=== PATIENT | male | born 1970 | race Hispanic/Latino ===

== ENCOUNTER 2016-08-01 16:41 | Inpatient (IN) | payer OTHER ==
--- NOTE | 2016-08-01 17:20 | CT ---
PROCEDURE: CT HEAD WITHOUT CONTRAST. HISTORY: code stroke COMPARISON: None available. TECHNIQUE: Axial computed tomography images were obtained through the head/brain without intravenous contrast. Radiation dose: Total exam DLP = 1679.33 mGy-cm. This CT exam was performed using one or more of the following dose reduction techniques: Automated exposure control, adjustment of the mA and/or kV according to patient size, and/or use of iterative reconstruction technique. FINDINGS: Several images degraded by patient motion. HEMORRHAGE: No intracranial hemorrhage. BRAIN: No mass effect or edema. No atrophy or chronic microvascular ischemic changes.Please note that MRI with diffusion imaging is more sensitive in the detection of acute ischemic event. VENTRICLES: No hydrocephalus. CALVARIUM: Unremarkable. PARANASAL SINUSES: Unremarkable as visualized. No significant inflammatory changes. MASTOID AIR CELLS: Unremarkable as visualized. No inflammatory changes. OTHER FINDINGS: None. IMPRESSION: No acute intracranial pathology identified. Findings discussed with Dr. Hathaway on 08/01/16 at 5:18 p.m.
[2016-08-01 17:21] LABS: BASO # 0.1 K/uL (0.0-0.2); EOS # 0.1 K/uL (0.0-0.7); EOS % 0.6 % (0.0-4.0); LYMPH # 0.5 K/uL (1.0-4.3); LYMPH % 5.8 % (20.0-40.0); MEAN CELL VOLUME 83.6 fl (80.0-94.0); MEAN CORPUSCULAR HEMOGLOBIN 28.9 pg (27.0-31.0); MEAN CORPUSCULAR HGB CONC 34.5 g/dL (33.0-37.0); MEAN PLATELET VOLUME 8.8 fl (7.2-11.7); MONO % 11.5 % (0.0-10.0); NEUT # 7.2 K/uL (1.8-7.0); NEUT % 81.1 % (50.0-75.0); NRBC % 0.2 % (0.0-0.0); PLATELET COUNT 209 K/uL (130-400); RED CELL DISTRIBUTION WIDTH 13.6 % (11.5-14.5); WHITE BLOOD COUNT 8.9 K/uL (4.8-10.8)
[2016-08-01 17:29] LABS: ALB/GLOB RATIO 1.2 (1.0-2.1); ALKALINE PHOSPHATASE 111 U/L (38-126); ALT/SGPT 50 U/L (21-72); AST/SGOT 30 U/L (17-59); BILIRUBIN,TOTAL 0.6 mg/dl (0.2-1.3); BLOOD UREA NITROGEN 11 mg/dl (9-20); CALCIUM 8.9 mg/dL (8.4-10.2); CARBON DIOXIDE 22 mmol/L (22-30); CHLORIDE 100 mmol/L (98-107); CHOLESTEROL 197 mg/dL (0-199); GFR AFRICAN-AMERICAN > 60; GLUCOSE,RANDOM 191 mg/dL (75-110); POTASSIUM 3.8 MMOL/L (3.6-5.0); SODIUM 136 mmol/l (132-148); TOTAL PROTEIN 7.2 G/DL (6.3-8.2)
[2016-08-01] MEDS ORDERED: Sodium Chloride 0.9% 1,000 ML IV ONE (17:30)
[2016-08-01 18:49] LABS: NEUTROPHIL 90 % (42-75); TOTAL CELLS COUNTED 100
[2016-08-01 18:50] LABS: LARGE PLATELETS PRESENT
--- NOTE | 2016-08-01 19:42 | ED PDOC ---
HPI: Neurologic - General Time Seen by Provider: 08/01/16 16:56 Chief Complaint (Nursing): Headache Source: patient Exam Limitations: no limitations - History of Present Illness Timing/Duration: other (started last night slurred speech at 10 am) Associated Symptoms: confusion, fatigue, slurred speech. denies: fever/chills, loss of consciousness, muscle spasms, nausea/vomiting, numbness in legs/feet, paresthesia, ringing in ears, seizures, sleepy, tingling in legs/feet, trouble walking, vision changes, weakness Allergies/Adverse Reactions: Allergies No Known Allergies Allergy (Verified 08/01/16 16:42) Home Medications: Ambulatory Orders No Known Home Med 08/01/16 Additional Complaint(s): Patient headache started 12 am last night. Woke up at 4 am, with tremors and mumble speech. NIHSS Stroke Scale - Date/Time Evaluation Performed Date Performed: 08/01/16 When Was NIHSS Performed: Baseline - How Severe is the Stroke Level of Consciousness: 0=Alert LOC to Questions: 0=Both comments correct LOC to commands: 0=Obeys both correctly Best Gaze: 0=Normal Visual: 0=No visual loss Facial: 0=Normal Motor Arm - Left: 0=No drift Motor Arm - Right: 0=No drift Motor Leg - Left: 0=No drift Motor Leg - Right: 0=No drift Limb Ataxia: 0=Absent Sensory: 0=Normal Best Language: 0=No aphasia Dysarthia: 0=Normal articulation Extinction & Inattention (Neglect): 0=Normal, no object Score: 0 Severity Of Stroke: 0 = No Stroke Past Medical History Reviewed: Historical Data, Nursing Documentation, Vital Signs Vital Signs: Last Vital Signs Temp 97.4 F L 08/01/16 17:15 Pulse 103 H 08/01/16 18:00 Resp 16 08/01/16 18:00 BP 113/68 08/01/16 18:00 Pulse Ox 96 08/01/16 18:00 - Medical History PMH: No Chronic Diseases - Family History Family History: States: Unknown Family Hx - Living Arrangements Living Arrangements: With Family - Social History Current smoker - smoking cessation education provided: No - Home Medications Home Medications: Ambulatory Orders Medication Instructions Recorded No Known Home Med 08/01/16 - Allergies Allergies/Adverse Reactions: Allergies Allergy/AdvReac Type Severity Reaction Status Date / Time No Known Allergies Allergy Verified 08/01/16 16:42 Review of Systems ROS Statement: Except As Marked, All Systems Reviewed And Found Negative Constitutional: Negative for: Fever, Chills Cardiovascular: Negative for: Chest Pain, Palpitations Respiratory: Negative for: Cough, Shortness of Breath Gastrointestinal: Negative for: Nausea, Vomiting, Abdominal Pain Neurological: Positive for: Change in Speech, Altered Mental Status, Headache. Negative for: Weakness, Numbness, Incoordination, Confusion, Seizures, Dizziness Physical Exam - Reviewed Nursing Documentation Reviewed: Yes Vital Signs Reviewed: Yes - Physical Exam Appears: Positive for: Uncomfortable Head Exam: Positive for: ATRAUMATIC, NORMAL INSPECTION, NORMOCEPHALIC Eye Exam: Positive for: Normal appearance, EOMI, PERRL. Negative for: Nystagmus , Periorbital swelling, Periorbital tenderness, Conjunctival injection, Scleral icterus ENT: Positive for: Pharynx Is (clear,mmm), TM Is/Are (nml bl). Negative for: Pharyngeal Erythema, Tonsillar Exudate Neck: Positive for: Normal, Painless ROM, Supple. Negative for: Decreased ROM, Limited ROM, Trachea Midline, Pain On Movement Of Neck Cardiovascular/Chest: Positive for: Regular Rate, Rhythm, Chest Non Tender. Negative for: Edema, Gallop Respiratory: Positive for: Normal Breath Sounds. Negative for: Decreased Breath Sounds, Accessory Muscle Use, Crackles, Rales, Rhonchi, Stridor, Wheezing Gastrointestinal/Abdominal: Positive for: Normal Exam, Bowel Sounds, Soft. Negative for: Tenderness Back: Positive for: Normal Inspection. Negative for: L CVA Tenderness, R CVA Tenderness Extremity: Positive for: Normal ROM. Negative for: Tenderness, Calf Tenderness , Deformity Neurologic/Psych: Positive for: Alert, managed care nurse II-XII, Oriented, Mood/Affect (nxious ), Cerebellar Tests. Negative for: Motor/Sensory Deficits, Aphasia, Facial Droop - Laboratory Results Result Diagrams: 08/01/16 17:00 08/01/16 17:00 - ECG ECG: Positive for: Interpreted By Tx ECG Rhythm: Positive for: Normal QRS, Normal ST Segment, Sinus Tachycardia. Negative for: ST/T Changes Interpretation Of Abn EKG: rate of 110 no evidence of ischemia O2 Sat by Pulse Oximetry: 96 Pulse Ox Interpretation: Normal - Radiology X-Ray: Interpreted by Me X-Ray Interpretation: No Acute Disease - Progress ED Course And Treament: repeat temp 99.7 Re-evaluation Time: 19:45 Condition: Improved Disposition - Clinical Impression Clinical Impression: TIA (transient ischemic attack) - Patient ED Disposition Is Patient to be Admitted: Yes Counseled Patient/Family Regarding: Studies Performed, Diagnosis, Need For Followup - Disposition Disposition: Routine/Home Disposition Time: 19:45 Condition: GOOD - Pt Status Changed To: Hospital Disposition Of: Observation - POA Present On Arrival: None
--- NOTE | 2016-08-01 19:52 | CP.PCM.HP ---
History of Present Illness - History of Present Illness History of Present Illness: PCP: None Chief Complaint: AMS HPI: The hx is obtained from the patient and his . He is a 46 years old male with no significant past medical hx comes referring awaking on the night prior to this admission with tremors, mumbled slurred speech, no LOC. His mentioned that he was mildly confused. No Incontinence of urine nor faeces, no foaming at the mouth. He did have headache before going to sleep. No hx of HTN, DM, Renal disease nor neurological disorder, no Seizure. In the ED the Stroke scale was Zero. PMH: No Chronic diseases PSH: No Past surgical history SH: Never smoked, no Alcohol use; no illegal drug use; live with , works in construction FH: Grandmother with DM Allergies: NKDA Present on Admission - Present on Admission Any Indicators Present on Admission: No History of Uncontrolled Diabetes: No Urinary Catheter: No Decubitus Ulcer Present: No Review of Systems - Review of Systems Systems not reviewed;Unavailable: Respiratory Distress - Constitutional Constitutional: Fever, Headache. absent: Anorexia, Chills - EENT Eyes: absent: Blurred Vision, Diplopia, Floaters, Photophobia, Requires Corrective Lenses, Sees Flashes Ears: absent: Decreased Hearing, Ear Discharge, Ear Pain, Tinnitus Nose/Mouth/Throat: absent: Epistaxis, Nasal Congestion, Nasal Discharge, Dental Pain, Dry Mouth, Sore Throat Additional comments: Mumbled slurred speech. - Cardiovascular Cardiovascular: absent: Chest Pain, Dyspnea, Edema - Respiratory Respiratory: Cough. absent: Dyspnea, Wheezing, Stridor - Gastrointestinal Gastrointestinal: absent: Abdominal Pain, Constipation, Diarrhea, Nausea, Vomiting - Genitourinary Genitourinary: absent: Dysuria, Flank Pain, Hematuria, Urinary Frequency - Musculoskeletal Musculoskeletal: absent: Back Pain, Joint Swelling, Muscle Weakness, Myalgias, Numbness - Integumentary Integumentary: absent: Pruritus, Rash, Skin Ulcer, Sores, Striae, Swelling - Neurological Neurological: Abnormal Speech, Confusion, Tremor - Psychiatric Psychiatric: absent: Anxiety, Depression, Memory Loss, Panic Attacks Additional comments: Mild confusion - Endocrine Endocrine: absent: Palpitations, Polydipsia, Polyphagia, Polyuria - Hematologic/Lymphatic Hematologic: absent: Easy Bleeding, Easy Bruising Past Patient History - Past Medical History & Family History Past Medical History?: No - Past Social History Smoking Status: Never Smoked Chewing Tobacco Use: No Cigar Use: No Alcohol: None Drugs: Denies Home Situation {Lives}: With Family - CARDIAC Hx Cardiac Disorders: No - PULMONARY Hx Respiratory Disorders: No - NEUROLOGICAL Hx Neurological Disorder: No - HEENT Hx HEENT Problems: No - RENAL Hx Chronic Kidney Disease: No - ENDOCRINE/METABOLIC Hx Endocrine Disorders: No - HEMATOLOGICAL/ONCOLOGICAL Hx Blood Disorders: No - INTEGUMENTARY Hx Dermatological Problems: No - MUSCULOSKELETAL/RHEUMATOLOGICAL Hx Musculoskeletal Disorders: No - GASTROINTESTINAL Hx Gastrointestinal Disorders: No - GENITOURINARY/GYNECOLOGICAL Hx Genitourinary Disorders: No - PSYCHIATRIC Hx Psychophysiologic Disorder: No Hx Substance Use: No - SURGICAL HISTORY Hx Surgeries: No - ANESTHESIA Hx Anesthesia: No Meds Allergies/Adverse Reactions: Allergies Allergy/AdvReac Type Severity Reaction Status Date / Time No Known Allergies Allergy Verified 08/01/16 16:42 Physical Exam - Constitutional Appears: No Acute Distress - Head Exam Head Exam: ATRAUMATIC, NORMAL INSPECTION, NORMOCEPHALIC - Eye Exam Eye Exam: EOMI, Normal appearance Pupil Exam: NORMAL ACCOMODATION, PERRL - ENT Exam ENT Exam: Mucous Membranes Moist, Normal Exam. absent: Normal External Ear Exam , Normal Oropharynx - Neck Exam Neck exam: Positive for: Full Rom, Normal Inspection. Negative for: Tenderness , Thyromegaly - Respiratory Exam Respiratory Exam: Clear to Auscultation Bilateral. absent: Rales, Rhonchi, Wheezes - Cardiovascular Exam Cardiovascular Exam: REGULAR RHYTHM, RRR, +S1, +S2. absent: Gallop, JVD - GI/Abdominal Exam GI & Abdominal Exam: Normal Bowel Sounds, Soft. absent: Organomegaly - Rectal Exam Rectal Exam: Deferred - Extremities Exam Extremities exam: Positive for: full ROM, normal inspection Additional comments: Body Pains to the left arm and hip - Back Exam Back exam: NORMAL INSPECTION. absent: CVA tenderness (L), CVA tenderness (R) - Neurological Exam Neurological exam: Alert, CN II-XII Intact, Oriented x3, Reflexes Normal - Psychiatric Exam Psychiatric exam: Normal Affect, Normal Mood - Skin Skin Exam: Dry, Intact, Normal Color, Warm Results - Vital Signs Recent Vital Signs: Last Vital Signs Temp 97.4 F L 08/01/16 17:15 Pulse 103 H 08/01/16 18:00 Resp 16 08/01/16 18:00 BP 113/68 08/01/16 18:00 Pulse Ox 96 08/01/16 19:46 - Labs Result Diagrams: 08/01/16 17:00 08/01/16 17:00 - Imaging and Cardiology Chest x-ray Status: Image reviewed by me Additional comment: No Infiltrates CT scan - head Status: Image reviewed by me, Report reviewed by me Additional comment: No acute intracranial Pathology Assessment & Plan - Assessment and Plan (Free Text) Assessment: #. TIA #. Hyperglycemia Plan: 46 years old male with no significant past medical hx comes referring awaking on the night prior to this admission with tremors, mumbled slurred speech, no LOC. His mentioned that he was mildly confused and fever. No Incontinence of urine nor faeces, no foaming at the mouth. He did have headache before going to sleep. No hx of HTN, DM, Renal disease nor neurological disorder, no Seizure. In the ED the Stroke scale was Zero. His temperature increased to 102.7F on arrival at the telemetry floor. #. Febrile syndrome. Probably viral - Consult Dr Esqueda ID - follow Blood culture - Procalcitonin - urinalysis and urine C&S - Tylenol for Fever - IV Fluids NS - Emperic Zosyn IVPB Q6H #. AMS. TIA vs Seizure or probably delirium from the fever at home - consult Neurology Dr Dubois - follow MRI/MRA of the Brain - Carotid Doppler #. New unset Diabetes Mellitus with Hyperglycemia. Grandmother has Diabetes mellitus - HbA1c of 8.5 - Accuchecks with regular insulin Sliding scale - Start Metformin before discharge # Stress ulcer Prophylaxis with Pepcid #. DVT prophylaxis with Lovenox #. Code Status: Full - Date & Time Date: 08/01/16 Time: 19:52
--- NOTE | 2016-08-01 21:11 | CP.PCM.CON ---
History of Present Illness - History of Present Illness History of Present Illness: Chief Complaint (Nursing): Headache Left Upper Extremity pain and shaking for 10 minutes Source: patient Exam Limitations: no limitations His mentioned he is stressed out as he is looking now for a job He has a h/o old seizure 10 years ago, at that time he was having a problem of Cocaine Abuse. He is happily since 22 years and has no children yet. He is not receiving any treatment for seizures or any condition. He has neck pain and low back pain. - History of Present Illness Timing/Duration: other (started last night slurred speech at 10 am) Associated Symptoms: confusion, fatigue, slurred speech. denies: fever/chills, loss of consciousness, muscle spasms, nausea/vomiting, numbness in legs/feet paresthesia, ringing in ears, seizures, sleepy, tingling in legs/feet, trouble walking, vision changes, weakness. He has a history of tremors. Allergies No Known Allergies Allergy (Verified 08/01/16 16:42) Smoking Status: Never Smoked - PSYCHIATRIC Hx Substance Use: No Home Medications: Ambulatory Orders No Known Home Med 08/01/16 Additional Complaint(s): Patient headache started 12 am last night. Woke up at 4 am, with tremors and mumble speech. NIHSS Stroke Scale - Date/Time Evaluation Performed Date Performed: 08/01/16 When Was NIHSS Performed: Baseline - How Severe is the Stroke Level of Consciousness: 0=Alert LOC to Questions: 0=Both comments correct LOC to commands: 0=Obeys both correctly Best Gaze: 0=Normal Visual: 0=No visual loss Facial: 0=Normal Motor Arm - Left: 0=No drift Motor Arm - Right: 0=No drift Motor Leg - Left: 0=No drift Motor Leg - Right: 0=No drift Limb Ataxia: 0=Absent Sensory: 0=Normal Best Language: 0=No aphasia Dysarthia: 0=Normal articulation Extinction & Inattention (Neglect): 0=Normal, no object Score: 0 Severity Of Stroke: 0 = No Stroke Past Medical History Reviewed: Historical Data, Nursing Documentation, Vital Signs Vital Signs: Last Vital Signs Temp 97.4 F L 08/01/16 17:15 Pulse 103 H 08/01/16 18:00 Resp 16 08/01/16 18:00 BP 113/68 08/01/16 18:00 Pulse Ox 96 08/01/16 18:00 - Medical History PMH: No Chronic Diseases - Family History Family History: States: Unknown Family Hx - Living Arrangements Living Arrangements: With Family - Social History Current smoker - smoking cessation education provided: No - Home Medications Home Medications: Ambulatory Orders Medication Instructions Recorded No Known Home Med 08/01/16 - Allergies Allergies/Adverse Reactions: Allergies Allergy/AdvReac Type Severity Reaction Status Date / Time No Known Allergies Allergy Verified 08/01/16 16:42 Neurological: Positive for: Change in Speech, Altered Mental Status, Headache. Negative for: Weakness, Numbness, Incoordination, Confusion, Seizures , Dizziness ECG Rhythm: Positive for: Normal QRS, Normal ST Segment, Sinus Tachycardia. Negative for: ST/T Changes Interpretation Of Abn EKG: rate of 110 no evidence of ischemia O2 Sat by Pulse Oximetry: 96 Pulse Ox Interpretation: Normal - Radiology X-Ray: Interpreted by Mo X-Ray Interpretation: No Acute Disease - Progress ED Course And Treament: repeat temp 99.7 Re-evaluation Time: 19:45 Condition: Improved IMPRESSION of CT Brain: No acute intracranial pathology identified. Disposition - Clinical Impression Clinical Impression: TIA (transient ischemic attack) - Patient ED Disposition Is Patient to be Admitted: Yes Counseled Patient/Family Regarding: Studies Performed, Diagnosis, Need For Followup Past Patient History - Past Social History Smoking Status: Never Smoked - PSYCHIATRIC Hx Substance Use: No Meds Allergies/Adverse Reactions: Allergies Allergy/AdvReac Type Severity Reaction Status Date / Time No Known Allergies Allergy Verified 08/01/16 16:42 Physical Exam - Neurological Exam Additional comments: Mental Status: Awake, Alert, Oriented X 3, normal memory X 3 Fluent coherent speech. Normal cognition. Cranial nerves II to XII: No deficits Motor exam: Normal tone, power, muscle bulk strong muscular man. Limited neck movements, due to pain and tenderness. Positive Lasegue test on the Left 50 degrees. DTR 0 to 1/4 Toes are down going bilaterally Sensory: No deficits Cerebellar: Normal FNT Results - Vital Signs Recent Vital Signs: Last Vital Signs Temp 97.4 F L 08/01/16 17:15 Pulse 103 H 08/01/16 18:00 Resp 16 08/01/16 18:00 BP 113/68 08/01/16 18:00 Pulse Ox 96 08/01/16 19:46 - Labs Result Diagrams: 08/01/16 17:00 08/01/16 17:00 Assessment & Plan (1) TIA (transient ischemic attack) Status: Acute (2) Seizures Assessment and Plan: Old h/o one Seizure. Status: Acute (3) Anxiety Assessment and Plan: He is receiving no treatment for seizures. 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
[2016-08-02] MEDS ORDERED: Sodium Chloride 0.9% 1,000 ML IV SCH ×3 (00:15→04:21)
[2016-08-02] MEDS ORDERED: Piperacillin/Tazobact 3.375 GM in Sodium Chloride 0.9% 100 ML IVPB SCH (04:30)
[2016-08-02] MEDS: Sodium Chloride 0.9% 1,000 ML IV SCH ×2 (06:20→17:14)
[2016-08-02] MEDS ORDERED: Pneumococcal 23-Valent Vaccine IM ONE (06:30)
[2016-08-02 07:09] LABS: URIC ACID 4.4 mg/Dl (3.5-8.5)
[2016-08-02 07:16] LABS: BASO # 0.1 K/uL (0.0-0.2); BASO % 0.6 % (0.0-2.0); EOS % 0.3 % (0.0-4.0); HEMATOCRIT 41.5 % (35.0-51.0); MEAN CELL VOLUME 84.3 fl (80.0-94.0); MEAN CORPUSCULAR HEMOGLOBIN 28.6 pg (27.0-31.0); MEAN PLATELET VOLUME 9.2 fl (7.2-11.7); MONO # 1.1 K/uL (0.0-0.8); MONO % 12.2 % (0.0-10.0); NEUT # 6.7 K/uL (1.8-7.0); NEUT % 75.9 % (50.0-75.0); RED CELL DISTRIBUTION WIDTH 13.9 % (11.5-14.5); WHITE BLOOD COUNT 8.9 K/uL (4.8-10.8)
[2016-08-02 07:37] LABS: THYROID STIMULATING HORMONE 0.14 mIU/ML (0.46-4.68)
--- NOTE | 2016-08-02 08:17 | RAD ---
HISTORY: code stroke COMPARISON: No prior. FINDINGS: LUNGS: No active pulmonary disease. PLEURA: No significant pleural effusion identified, no pneumothorax apparent. CARDIOVASCULAR: Normal. OSSEOUS STRUCTURES: No significant abnormalities. VISUALIZED UPPER ABDOMEN: Normal. OTHER FINDINGS: None. IMPRESSION: No active disease.
--- NOTE | 2016-08-02 08:45 | US ---
PROCEDURE: Duplex ultrasound of the carotid and vertebral arteries. HISTORY: Slurred speech/ mild confusion COMPARISON: None available. TECHNIQUE: Grayscale and duplex Doppler evaluation of the cervical carotid and vertebral arteries were performed. The common carotid, carotid bifurcations and cervical ICA and proximal ECA were evaluated. The vertebral arteries were evaluated for gross patency and direction. FINDINGS: RIGHT CAROTID ARTERIES: Common Carotid Artery: Normal. Maximal flow velocity of 87.8 cm/s. Carotid Bifurcation: Normal. Internal Carotid Artery:Normal. Maximal flow velocity of 81.5 cm/s. External Carotid Artery (proximal branches): Normal. Maximal flow velocity of 106.5 cm/s. ICA/CCA Ratio: 0.9 LEFT CAROTID ARTERIES: Common Carotid Artery: Normal. Maximal flow velocity of 1001.3 cm/s. Carotid Bifurcation: Normal. Internal Carotid Artery:Normal. Maximal flow velocity of 86.4 cm/s. External Carotid Artery (proximal branches): Normal. Maximal flow velocity of 146.4 cm/s. ICA/CCA Ratio: 1.1 VERTEBRAL ARTERIES: Right Vertebral Artery: Patent. Antegrade flow. Left Vertebral Artery: Patent. Antegrade flow. OTHER FINDINGS: None. IMPRESSION: No Duplex Doppler evidence of hemodynamically significant stenosis at the cervical carotid and vertebral arteries.
[2016-08-02] MEDS ORDERED: Enoxaparin 40 mg Syringe SC SCH (09:00)
--- NOTE | 2016-08-02 09:02 | CP.PCM.PN ---
Subjective - Date & Time of Evaluation Date of Evaluation: 08/02/16 Time of Evaluation: 08:30 - Subjective Subjective: Febrile awake, oriented has sl BRITT no CP no SOB sl cough had flu like sxs prior to fever also states he had chills no abd pain no N/V , no diarrhea Objective - Vital Signs/Intake and Output Vital Signs (last 24 hours): Temp Pulse Resp BP Pulse Ox 99.1 F 104 H 20 142/90 97 08/02/16 07:59 08/02/16 07:59 08/02/16 07:59 08/02/16 07:59 08/02/16 07:59 - Medications Medications: Current Medications Acetaminophen (Tylenol 325mg Tab) 650 mg PO Q4 PRN PRN Reason: Headache Acetaminophen (Tylenol 325mg Tab) 650 mg PO Q4 PRN PRN Reason: Fever >100.4 F Last Admin: 08/02/16 04:58 Dose: 650 mg Atorvastatin Calcium (Lipitor) 20 mg PO DAILY ZAKIYA Famotidine (Pepcid) 20 mg PO DAILY ZAKIYA Sodium Chloride (Sodium Chloride 0.9%) 1,000 mls @ 125 mls/hr IV .Q8H ZAKIYA Stop: 08/03/16 04:31 Last Admin: 08/02/16 06:20 Dose: 125 mls/hr Ceftriaxone Sodium 2 gm/ (Sodium Chloride) 100 mls @ 100 mls/hr IVPB DAILY ZAKIYA Vancomycin HCl 1 gm/ Sodium (Chloride) 250 mls @ 166.667 mls/hr IVPB Q12 ZAKIYA Acyclovir 800 mg/ Sodium (Chloride) 250 mls @ 125 mls/hr IV Q8 [facility] Insulin Human Lispro (Humalog) 0 units SC ACHS ZAKIYA PRN Reason: Protocol - Labs Labs: 08/02/16 05:20 PT 10.6 SECONDS (9.6-11.2) 08/01/16 17:00 INR 1.02 (0.92-1.08) 08/01/16 17:00 APTT 30.0 SECONDS (23.3-32.5) 08/01/16 17:00 - Constitutional Appears: Toxic, No Acute Distress - Head Exam Head Exam: NORMAL INSPECTION, NORMOCEPHALIC - Eye Exam Eye Exam: EOMI, Normal appearance, PERRL Pupil Exam: NORMAL ACCOMODATION - ENT Exam ENT Exam: Mucous Membranes Moist, Normal External Ear Exam - Neck Exam Neck Exam: Full ROM. absent: Meningismus - Respiratory Exam Respiratory Exam: NORMAL BREATHING PATTERN. absent: Rales, Wheezes, Respiratory Distress - Cardiovascular Exam Cardiovascular Exam: REGULAR RHYTHM, +S1, +S2 - GI/Abdominal Exam GI & Abdominal Exam: Soft, Normal Bowel Sounds. absent: Tenderness - Extremities Exam Extremities Exam: Full ROM, Normal Capillary Refill. absent: Calf Tenderness, Pedal Edema - Back Exam Back Exam: Full ROM. absent: CVA tenderness (L), CVA tenderness (R), paraspinal tenderness, vertebral tenderness - Neurological Exam Neurological Exam: Alert, Awake, CN II-XII Intact, Oriented x3 - Psychiatric Exam Psychiatric exam: Flat Affect - Skin Skin Exam: Dry, Normal Color, Warm Assessment and Plan (1) Fever Status: Acute (2) Toxic encephalopathy Status: Acute (3) Methamphetamine use Status: Acute (4) Slurring of speech Status: Acute (5) New onset type 2 diabetes mellitus Status: Acute (6) DVT prophylaxis Status: Acute - Assessment and Plan (Free Text) Assessment: 46 y/o gent, no significant PMH , brought in bec of fever, confusion, slurred speech and rigors. (1) Fever unclear source of infection Status: Acute WBC ct normal need to r/o Meningitis due to fever, confusion no nuchal rigidity ID consulted- rec to do LP, also rec to empirically start IV Vanco, Ceftriaxone and Acyclovir discussed case with Dr Esqueda - if no source of infection - fever and confusion may be sec to Crystal Meth and Cocaine use Blood c/s Urine c/s Procalcitonin normal CXR : neg HIV : neg Influenza: neg RPR : neg (2) Toxic encephalopathy Status: Acute unclear etiology r/o Infectious etiology - ie:Meningitis also could poss due to drug abuse (3) Methamphetamine use and Cocaine Status: Acute pt admits to recent Crystal Meth and Cocaine use prior to start of the symptoms (4) Slurring of speech Status: Acute prob sec to drug abuse need to r/o CVA but no neuro deficit at present MRI/MRA of brain Neuro consulted CT of head : neg (5) New onset type 2 diabetes mellitus Status: Acute accucheck w/ cobverage Levemir low dose 6 units (6) DVT prophylaxis Status: Acute Hold anticoag as pt is for LP SCD
--- NOTE | 2016-08-02 10:55 | MRI ---
PROCEDURE: MRI BRAIN WITHOUT CONTRAST HISTORY: slurred speech/ mild confusion COMPARISON: Comparison is made to the previous CT of the head dated 08/01/2016. TECHNIQUE: Multiplanar, multisequence MR images of the brain were obtained without intravenous contrast enhancement. FINDINGS: HEMORRHAGE: None DWI: No evidence of an acute or early subacute infarction. BRAIN PARENCHYMA: No mass effect or edema. No atrophy or chronic microvascular ischemic changes. VENTRICLES: Unremarkable. No hydrocephalus. CRANIUM: Unremarkable. ORBITS: Grossly unremarkable. PARANASAL SINUSES/MASTOIDS: Clear VASCULAR SYSTEM: Skull base flow voids intact. OTHER FINDINGS: None. IMPRESSION: Suboptimal study due to patient's motion. No evidence of acute pathology. No evidence of mass lesion mass effect or midline shift.
[2016-08-02] MEDS: cefTRIAXone 2 GM in Sodium Chloride 0.9% 100 ML IVPB SCH (11:43)
--- NOTE | 2016-08-02 12:37 | CP.PCM.CON ---
History of Present Illness - History of Present Illness History of Present Illness: 46 y old DM with PMHX of DM, hx of crystal meth and cocaine use, last use monday ? presented with TIA and headache, has fever and ID consulted. Pt complains of severe headache. Past Patient History - Past Medical History & Family History Past Medical History?: No - Past Social History Smoking Status: Never Smoked Chewing Tobacco Use: No Cigar Use: No Alcohol: None Drugs: Denies Home Situation {Lives}: With Family - CARDIAC Hx Cardiac Disorders: No - PULMONARY Hx Respiratory Disorders: No - NEUROLOGICAL Hx Neurological Disorder: No - HEENT Hx HEENT Problems: No - RENAL Hx Chronic Kidney Disease: No - ENDOCRINE/METABOLIC Hx Endocrine Disorders: No - HEMATOLOGICAL/ONCOLOGICAL Hx Blood Disorders: No - INTEGUMENTARY Hx Dermatological Problems: No - MUSCULOSKELETAL/RHEUMATOLOGICAL Hx Musculoskeletal Disorders: No - GASTROINTESTINAL Hx Gastrointestinal Disorders: No - GENITOURINARY/GYNECOLOGICAL Hx Genitourinary Disorders: No - PSYCHIATRIC Hx Psychophysiologic Disorder: No Hx Substance Use: No - SURGICAL HISTORY Hx Surgeries: No - ANESTHESIA Hx Anesthesia: No Meds Allergies/Adverse Reactions: Allergies Allergy/AdvReac Type Severity Reaction Status Date / Time No Known Allergies Allergy Verified 08/01/16 16:42 - Medications Medications: Current Medications Acetaminophen (Tylenol 325mg Tab) 650 mg PO Q4 PRN PRN Reason: Headache Last Admin: 08/02/16 11:30 Dose: 650 mg Acetaminophen (Tylenol 325mg Tab) 650 mg PO Q4 PRN PRN Reason: Fever >100.4 F Last Admin: 08/02/16 04:58 Dose: 650 mg Atorvastatin Calcium (Lipitor) 20 mg PO DAILY [facility] Last Admin: 08/02/16 11:48 Dose: 20 mg Famotidine (Pepcid) 20 mg PO DAILY [facility] Last Admin: 08/02/16 11:48 Dose: 20 mg Sodium Chloride (Sodium Chloride 0.9%) 1,000 mls @ 125 mls/hr IV .Q8H [facility] OF [facility] Stop: 08/03/16 04:31 Last Admin: 08/02/16 06:20 Dose: 125 mls/hr Ceftriaxone Sodium 2 gm/ (Sodium Chloride) 100 mls @ 100 mls/hr IVPB DAILY [facility] Last Admin: 08/02/16 11:43 Dose: 100 mls/hr Vancomycin HCl 1 gm/ Sodium (Chloride) 250 mls @ 166.667 mls/hr IVPB Q12 [facility] Acyclovir 800 mg/ Sodium (Chloride) 250 mls @ 125 mls/hr IV Q8 [facility] Last Admin: 08/02/16 12:26 Dose: 125 mls/hr Insulin Human Lispro (Humalog) 0 units SC ACHS [facility] PRN Reason: Protocol Physical Exam - Head Exam Additional comments: no neck signs Results - Vital Signs Recent Vital Signs: Last Vital Signs Temp 99.1 F 08/02/16 07:59 Pulse 104 H 08/02/16 07:59 Resp 20 08/02/16 07:59 BP 142/90 08/02/16 07:59 Pulse Ox 97 08/02/16 07:59 - Labs Result Diagrams: 08/02/16 05:20 08/01/16 17:00 Labs: Laboratory Results - last 24 hr 08/02/16 08/02/16 08/02/16 05:20 05:58 07:58 WBC 8.9 RBC 4.93 Hgb 14.1 Hct 41.5 MCV 84.3 MCH 28.6 MCHC 34.0 RDW 13.9 Plt Count 192 MPV 9.2 Neut % (Auto) 75.9 H Lymph % (Auto) 11.0 L Towns % (Auto) 12.2 H Eos % (Auto) 0.3 Baso % (Auto) 0.6 Neut # 6.7 Lymph # 1.0 Towns # 1.1 H Eos # 0.0 Baso # 0.1 ESR 14 POC Glucose (mg/dL) 216 H Uric Acid 4.4 C-React Prot High Sens > 15.00 H TSH 3rd Generation 0.14 L HIV-1 Ab Rapid Screen Non reactive 08/02/16 10:56 WBC RBC Hgb Hct MCV MCH MCHC RDW Plt Count MPV Neut % (Auto) Lymph % (Auto) Towns % (Auto) Eos % (Auto) Baso % (Auto) Neut # Lymph # Towns # Eos # Baso # ESR POC Glucose (mg/dL) 185 H Uric Acid C-React Prot High Sens TSH 3rd Generation HIV-1 Ab Rapid Screen Assessment & Plan - Assessment and Plan (Free Text) Assessment: 46 y old with DM, with headache and drug use with fever. DDx: 1.Rule out meningitis and HSV encephalitis 2. Rule out vasospasm secondary to amphetamines and cocaine use. Recommend LP. Agree with Acyclovir, Ceftriaxone and Vancomycin # 1 Suggest MRA to rule out vasospasm
[2016-08-02 13:25] LABS: URINE BILIRUBIN NEGATIVE (NEGATIVE); URINE BLOOD NEGATIVE (NEGATIVE); URINE COLOR STRAW (YELLOW); URINE GLUCOSE (UA) >=500 mg/dL (Normal); URINE KETONE NEGATIVE (NEGATIVE); URINE LEUKOCYTE ESTERASE NEG Leu/uL (Negative); URINE PROTEIN NEGATIVE (NEGATIVE); URINE UROBILINOGEN 0.2-1.0 mg/dL (0.2-1.0); WBC URINE < 1 /hpf (0-5)
[2016-08-02] MEDS: Insulin Lispro (humaLOG) 100 Units/ml Inj SC SCH ×3 (13:39→22:09)
[2016-08-02] MEDS ORDERED: Lidocaine 2% Inj (20ml) ONE (15:31)
--- NOTE | 2016-08-02 16:23 | PCM.PROC ---
Procedures Attestation:: I certify that I have explained the specified Operation(s) or Procedure(s), risks, benefits and reasonable alternatives to the Patient and/or other person responsible. The opportunity was given to ask questions and all questions answered - Lumbar Puncture Consent Obtained: Written Consent Time Out Performed: Yes Patient Position: Upright Skin Prep: Povidone-Iodine 1% Local Anesthetic Used: Lidocaine 1% Amount of Anesthesia Used (mls): 5 Spinal Needle Gauge: 20G Interspace Used: L3-L4 Fluid Initially Obtained: Clear Complications: None
[2016-08-02 16:53] LABS: FLUID TYPE SPINAL FLUID
[2016-08-02 18:25] LABS: CSF COMMENT COLORLESS
[2016-08-02 18:49] LABS: CSF NEUTROPHIL 0 % (0-0); CSF TOTAL COUNT 2 (0-0)
[2016-08-02] MEDS: Insulin Detemir 100 Units/ml Inj SC SCH (22:09)
--- NOTE | 2016-08-03 00:54 | CP.PCM.PN ---
Subjective - Date & Time of Evaluation Date of Evaluation: 08/02/16 Time of Evaluation: 21:00 - Subjective Subjective: He developed fever and looked unable to focus. An L.P. was performed and showed high RBCs, high Glucose. Negative Carotid Doppler bilaterally. MRI Brain is negative and is sub optimal due to movements artefacts. He is receiving medicine for HTN, DM, High Lipid Profile and Vancomycin. Very low TSH, suggesting a possible Hyperthyroidism, further tests are in progress. Negative HIV, RPR and Rh Factor. Low 25 Hydroxy Vitamin D. Objective - Vital Signs/Intake and Output Vital Signs (last 24 hours): Temp Pulse Resp BP Pulse Ox 99 F 104 H 20 111/83 97 08/03/16 00:45 08/03/16 00:45 08/03/16 00:45 08/03/16 00:45 08/03/16 00:45 - Medications Medications: Current Medications Acetaminophen (Tylenol 325mg Tab) 650 mg PO Q4 PRN PRN Reason: Headache Last Admin: 08/02/16 22:58 Dose: 650 mg Acetaminophen (Tylenol 325mg Tab) 650 mg PO Q4 PRN PRN Reason: Fever >100.4 F Last Admin: 08/02/16 17:13 Dose: 650 mg Atorvastatin Calcium (Lipitor) 20 mg PO DAILY [facility] Last Admin: 08/02/16 11:48 Dose: 20 mg Clonidine HCl (Catapres) 0.1 mg PO BID [facility] Last Admin: 08/02/16 17:57 Dose: 0.1 mg Famotidine (Pepcid) 20 mg PO DAILY [facility] Last Admin: 08/02/16 11:48 Dose: 20 mg Sodium Chloride (Sodium Chloride 0.9%) 1,000 mls @ 125 mls/hr IV .Q8H [facility] Stop: 08/03/16 04:31 Last Admin: 08/02/16 17:14 Dose: 125 mls/hr Ceftriaxone Sodium 2 gm/ (Sodium Chloride) 100 mls @ 100 mls/hr IVPB DAILY [facility] Last Admin: 08/02/16 11:43 Dose: 100 mls/hr Vancomycin HCl 1 gm/ Sodium (Chloride) 250 mls @ 166.667 mls/hr IVPB Q12 [facility] Last Admin: 08/02/16 22:08 Dose: 166.667 mls/hr Acyclovir 800 mg/ Sodium (Chloride) 250 mls @ 125 mls/hr IV Q8 [facility] Last Admin: 08/03/16 00:51 Dose: 125 mls/hr Insulin Detemir (Levemir) 6 units SC HS [facility] Last Admin: 08/02/16 22:09 Dose: 6 units Insulin Human Lispro (Humalog) 0 units SC ACHS [facility] PRN Reason: Protocol Last Admin: 08/02/16 22:09 Dose: Not Given Lorazepam (Ativan) 1 mg IVP Q6 PRN PRN Reason: Agitation - Labs Labs: 08/02/16 05:20 PT 10.6 SECONDS (9.6-11.2) 08/01/16 17:00 INR 1.02 (0.92-1.08) 08/01/16 17:00 APTT 30.0 SECONDS (23.3-32.5) 08/01/16 17:00 Assessment and Plan (1) TIA (transient ischemic attack) Status: Acute (2) Seizures Status: Acute (3) Anxiety Status: Acute (4) Radiculopathy Status: Acute
[2016-08-03] MEDS: Sodium Chloride 0.9% 1,000 ML IV SCH (00:55)
[2016-08-03] MEDS ORDERED: Alum-Mag Hydrox-Simethicone Susp (30 mL) PO ONE (05:15)
[2016-08-03 06:48] LABS: BASO # 0.1 K/uL (0.0-0.2); BASO % 0.6 % (0.0-2.0); EOS % 0.4 % (0.0-4.0); HEMATOCRIT 40.6 % (35.0-51.0); LYMPH # 1.2 K/uL (1.0-4.3); LYMPH % 14.2 % (20.0-40.0); MEAN CELL VOLUME 84.8 fl (80.0-94.0); MEAN CORPUSCULAR HEMOGLOBIN 28.8 pg (27.0-31.0); MEAN PLATELET VOLUME 9.1 fl (7.2-11.7); MONO # 1.1 K/uL (0.0-0.8); MONO % 12.1 % (0.0-10.0); NEUT # 6.4 K/uL (1.8-7.0); NEUT % 72.7 % (50.0-75.0); NRBC % 0.1 % (0.0-0.0); RED CELL DISTRIBUTION WIDTH 13.9 % (11.5-14.5); WHITE BLOOD COUNT 8.7 K/uL (4.8-10.8)
[2016-08-03] MEDS: Insulin Lispro (humaLOG) 100 Units/ml Inj SC SCH ×4 (06:49→22:10)
[2016-08-03 07:15] LABS: ALB/GLOB RATIO 1.1 (1.0-2.1); ALKALINE PHOSPHATASE 87 U/L (38-126); ALT/SGPT 34 U/L (21-72); AST/SGOT 22 U/L (17-59); BILIRUBIN,TOTAL 0.3 mg/dl (0.2-1.3); BLOOD UREA NITROGEN 8 mg/dl (9-20); CALCIUM 8.2 mg/dL (8.4-10.2); CARBON DIOXIDE 22 mmol/L (22-30); CHLORIDE 103 mmol/L (98-107); GFR AFRICAN-AMERICAN > 60; GLUCOSE,RANDOM 266 mg/dL (75-110); POTASSIUM 3.8 MMOL/L (3.6-5.0); SODIUM 141 mmol/l (132-148); TOTAL PROTEIN 6.5 G/DL (6.3-8.2)
[2016-08-03 07:17] LABS: T4 6.25 ug/dl (5.5-11.0)
[2016-08-03 07:31] LABS: THYROID STIMULATING HORMONE 1.02 mIU/ML (0.46-4.68)
[2016-08-03 08:23] LABS: LYME DISEASE SCREEN <0.90 index (())
[2016-08-03] MEDS: cefTRIAXone 2 GM in Sodium Chloride 0.9% 100 ML IVPB SCH (09:00)
[2016-08-03] MEDS: Sucralfate 1 gm/10 ml Oral Susp UD PO SCH ×4 (09:01→22:13)
[2016-08-03] MEDS: Pantoprazole 40 mg EC Tab PO SCH (09:33)
[2016-08-03] MEDS ORDERED: Ergocalciferol 50,000 Intl Units Cap PO SCH (10:00)
--- NOTE | 2016-08-03 10:48 | CP.PCM.PN ---
Subjective - Date & Time of Evaluation Date of Evaluation: 08/03/16 Time of Evaluation: 09:00 - Subjective Subjective: No fever since 7 pm yesterday Pt is alert, oriented x 3 denies BRITT, no confusion, no Neck rigidity denies CP no SOB has sl cough had one watery BM this am Objective - Vital Signs/Intake and Output Vital Signs (last 24 hours): Temp Pulse Resp BP Pulse Ox 97.6 F 88 18 137/90 98 08/03/16 08:00 08/03/16 09:00 08/03/16 08:00 08/03/16 09:00 08/03/16 08:00 - Medications Medications: Current Medications Acetaminophen (Tylenol 325mg Tab) 650 mg PO Q4 PRN PRN Reason: Headache Last Admin: 08/03/16 05:22 Dose: 650 mg Acetaminophen (Tylenol 325mg Tab) 650 mg PO Q4 PRN PRN Reason: Fever >100.4 F Last Admin: 08/02/16 17:13 Dose: 650 mg Atorvastatin Calcium (Lipitor) 20 mg PO DAILY [facility] Last Admin: 08/03/16 09:29 Dose: 20 mg Calcium Carbonate (Oscal) 500 mg PO BIDWM [facility] Last Admin: 08/03/16 08:58 Dose: 500 mg Clonidine HCl (Catapres) 0.1 mg PO BID [facility] Last Admin: 08/03/16 09:00 Dose: 0.1 mg Ergocalciferol (Drisdol 50,000 Intl Units Cap) 1 cap PO Q7D [facility] Last Admin: 08/03/16 09:31 Dose: 1 cap Famotidine (Pepcid) 20 mg PO DAILY [facility] Last Admin: 08/03/16 08:58 Dose: 20 mg Glipizide (Glucotrol) 5 mg PO STAT ST[facility] Stop: 08/03/16 10:47 Glipizide (Glucotrol) 5 mg PO ACB [facility] Ceftriaxone Sodium 2 gm/ (Sodium Chloride) 100 mls @ 100 mls/hr IVPB DAILY [facility] Last Admin: 08/03/16 09:00 Dose: 100 mls/hr Vancomycin HCl 1 gm/ Sodium (Chloride) 250 mls @ 166.667 mls/hr IVPB Q12 [facility] Last Admin: 08/03/16 09:00 Dose: 166.667 mls/hr Acyclovir 800 mg/ Sodium (Chloride) 250 mls @ 125 mls/hr IV Q8 [facility] Last Admin: 08/03/16 00:51 Dose: 125 mls/hr Insulin Detemir (Levemir) 6 units SC HS [facility] Last Admin: 08/02/16 22:09 Dose: 6 units Insulin Human Lispro (Humalog) 0 units SC ACHS [facility] PRN Reason: Protocol Last Admin: 08/03/16 06:49 Dose: 1 u Lorazepam (Ativan) 1 mg IVP Q6 PRN PRN Reason: Agitation Last Admin: 08/03/16 09:12 Dose: 1 mg Pantoprazole Sodium (Protonix Ec Tab) 40 mg PO DAILY [facility] Last Admin: 08/03/16 09:33 Dose: 40 mg Sucralfate (Carafate Oral Susp) 1 gm PO QID [facility] Last Admin: 08/03/16 09:01 Dose: Not Given - Labs Labs: 08/03/16 04:45 08/03/16 04:45 PT 10.6 SECONDS (9.6-11.2) 08/01/16 17:00 INR 1.02 (0.92-1.08) 08/01/16 17:00 APTT 30.0 SECONDS (23.3-32.5) 08/01/16 17:00 - Constitutional Appears: Toxic, No Acute Distress - Head Exam Head Exam: NORMAL INSPECTION, NORMOCEPHALIC - Eye Exam Eye Exam: EOMI, Normal appearance, PERRL Pupil Exam: NORMAL ACCOMODATION - ENT Exam ENT Exam: Mucous Membranes Moist, Normal External Ear Exam - Neck Exam Neck Exam: Full ROM. absent: Meningismus - Respiratory Exam Respiratory Exam: NORMAL BREATHING PATTERN. absent: Rales, Wheezes, Respiratory Distress - Cardiovascular Exam Cardiovascular Exam: REGULAR RHYTHM, +S1, +S2 - GI/Abdominal Exam GI & Abdominal Exam: Soft, Normal Bowel Sounds. absent: Tenderness - Extremities Exam Extremities Exam: Full ROM, Normal Capillary Refill. absent: Calf Tenderness, Pedal Edema - Back Exam Back Exam: Full ROM. absent: CVA tenderness (L), CVA tenderness (R), paraspinal tenderness, vertebral tenderness - Neurological Exam Neurological Exam: Alert, Awake, CN II-XII Intact, Oriented x3 - Psychiatric Exam Psychiatric exam: Flat Affect - Skin Skin Exam: Dry, Normal Color, Warm Assessment and Plan (1) Fever Status: Acute (2) Toxic encephalopathy Status: Acute (3) Methamphetamine use Status: Acute (4) Slurring of speech Status: Acute (5) New onset type 2 diabetes mellitus Status: Acute (6) DVT prophylaxis Status: Acute - Assessment and Plan (Free Text) Assessment: 46 y/o gent, no significant PMH , brought in bec of fever, confusion, slurred speech and rigors. (1) Fever unclear etiology - Infection versus sec to Crystal Meth/Cocaine Status: Acute WBC ct normal Lumbar Tap done: CSF analysis negative so far - normal cell count, glucose elevated, protein normal , CSF Gram stain : neg awaitc cultures, HSV no nuchal rigidity ID consulted- rec to do LP, also rec to empirically start IV Vanco, Ceftriaxone and Acyclovir discussed case with Dr Esqueda - if no source of infection - fever and confusion may be sec to Crystal Meth and Cocaine use Blood c/s: neg Urine c/s: neg Procalcitonin normal CXR : neg HIV : neg Influenza: neg RPR : neg Stool work up ( pt had watery BM this am ) (2) Toxic encephalopathy Status: Acute unclear etiology r/o Infectious etiology - ie:Meningitis also could poss due to drug abuse (3) Methamphetamine use and Cocaine Status: Acute pt admits to recent Crystal Meth and Cocaine use prior to start of the symptoms Urine TOx : + for Amphetamine (4) Slurring of speech Status: Acute prob sec to drug abuse need to r/o CVA but no neuro deficit at present MRI of Brain : neg Pt refused MRA Neuro consulted CT of head : neg (5) New onset type 2 diabetes mellitus Status: Acute accucheck w/ cobverage Levemir low dose 6 units start Glipizide BID (6) DVT prophylaxis Status: Acute Hold anticoag had LP SCD Pt is ambulatory
--- NOTE | 2016-08-03 11:48 | CARD ---
APPROVED REPORT EKG Measurement Heart [id number] <Conclusion> Sinus tachycardia Possible Left atrial enlargement Incomplete right bundle branch block Borderline ECG
[2016-08-03 15:15] LABS: N MENINGITIS ACY/W135 NEGATIVE (NEGATIVE); N MENINGITIS B/ECOLI K1 NEGATIVE (NEGATIVE)
[2016-08-03 15:16] LABS: H INFLUENZAE B NEGATIVE (NEGATIVE)
[2016-08-03] MEDS: Benzocaine/Menthol (Cepacol) Lozenge PO PRN (17:51)
[2016-08-03] MEDS ORDERED: Benzocaine/Menthol (Cepacol) Lozenge PO ONE (19:10)
--- NOTE | 2016-08-03 21:33 | CP.PCM.PN ---
Subjective - Date & Time of Evaluation Date of Evaluation: 08/03/16 Time of Evaluation: 21:10 - Subjective Subjective: No Fever today for more than 24 hours, no Headache, only one motion of watery stool, he feels better. BP is better controlled. IMPRESSION of MRI Brain: Sub optimal study due to patient's motion. No evidence of acute pathology. No evidence of mass lesion mass effect or midline shift. Objective - Vital Signs/Intake and Output Vital Signs (last 24 hours): Temp Pulse Resp BP Pulse Ox 98.8 F 108 H 20 151/78 H 97 08/03/16 19:11 08/03/16 19:11 08/03/16 19:11 08/03/16 19:11 08/03/16 19:11 - Medications Medications: Current Medications Acetaminophen (Tylenol 325mg Tab) 650 mg PO Q4 PRN PRN Reason: Headache Last Admin: 08/03/16 05:22 Dose: 650 mg Acetaminophen (Tylenol 325mg Tab) 650 mg PO Q4 PRN PRN Reason: Fever >100.4 F Last Admin: 08/02/16 17:13 Dose: 650 mg Atorvastatin Calcium (Lipitor) 20 mg PO DAILY [facility] Last Admin: 08/03/16 09:29 Dose: 20 mg Benzocaine/Menthol (Cepacol Sore Throat) 1 lester PO Q2 PRN PRN Reason: Sore Throat Last Admin: 08/03/16 17:51 Dose: 1 lester Calcium Carbonate (Oscal) 500 mg PO BIDWM [facility] Last Admin: 08/03/16 18:30 Dose: 500 mg Clonidine HCl (Catapres) 0.1 mg PO BID [facility] Last Admin: 08/03/16 17:44 Dose: 0.1 mg Ergocalciferol (Drisdol 50,000 Intl Units Cap) 1 cap PO Q7D [facility] Last Admin: 08/03/16 09:31 Dose: 1 cap Famotidine (Pepcid) 20 mg PO DAILY [facility] Last Admin: 08/03/16 08:58 Dose: 20 mg Glipizide (Glucotrol) 5 mg PO ACB [facility] Ceftriaxone Sodium 2 gm/ (Sodium Chloride) 100 mls @ 100 mls/hr IVPB DAILY [facility] Last Admin: 08/03/16 09:00 Dose: 100 mls/hr Vancomycin HCl 1 gm/ Sodium (Chloride) 250 mls @ 166.667 mls/hr IVPB Q12 [facility] Last Admin: 08/03/16 09:00 Dose: 166.667 mls/hr Acyclovir 800 mg/ Sodium (Chloride) 250 mls @ 125 mls/hr IV Q8 [facility] Last Admin: 08/03/16 18:30 Dose: 125 mls/hr Insulin Detemir (Levemir) 6 units SC HS [facility] Last Admin: 08/02/16 22:09 Dose: 6 units Insulin Human Lispro (Humalog) 0 units SC ACHS [facility] PRN Reason: Protocol Last Admin: 08/03/16 16:30 Dose: 2 u Lorazepam (Ativan) 1 mg IVP Q6 PRN PRN Reason: Agitation Last Admin: 08/03/16 09:12 Dose: 1 mg Nicotine (Nicoderm Cq) 1 patch TD DAILY [facility] Pantoprazole Sodium (Protonix Ec Tab) 40 mg PO DAILY [facility] Last Admin: 08/03/16 09:33 Dose: 40 mg Sucralfate (Carafate Oral Susp) 1 gm PO QID [facility] Last Admin: 08/03/16 17:44 Dose: 1 gm - Labs Labs: 08/03/16 04:45 08/03/16 04:45 PT 10.6 SECONDS (9.6-11.2) 08/01/16 17:00 INR 1.02 (0.92-1.08) 08/01/16 17:00 APTT 30.0 SECONDS (23.3-32.5) 08/01/16 17:00 Assessment and Plan (1) TIA (transient ischemic attack) Status: Acute (2) Seizures Status: Acute (3) Anxiety Status: Acute (4) Radiculopathy Status: Acute
[2016-08-03] MEDS: Insulin Detemir 100 Units/ml Inj SC SCH (22:12)
[2016-08-04] MEDS: Insulin Lispro (humaLOG) 100 Units/ml Inj SC SCH ×2 (06:30→16:56)
[2016-08-04] MEDS ORDERED: Benzocaine/Menthol (Cepacol) Lozenge PO PRN (07:45)
[2016-08-04] MEDS: Benzocaine/Menthol (Cepacol) Lozenge PO PRN (08:35)
[2016-08-04] MEDS: Sucralfate 1 gm/10 ml Oral Susp UD PO SCH ×2 (08:35→13:00)
[2016-08-04] MEDS: cefTRIAXone 2 GM in Sodium Chloride 0.9% 100 ML IVPB SCH (08:38)
[2016-08-04] MEDS: Pantoprazole 40 mg EC Tab PO SCH (08:41)
--- NOTE | 2016-08-04 11:21 | CP.PCM.PN ---
Subjective - Date & Time of Evaluation Date of Evaluation: 08/04/16 Time of Evaluation: 11:00 - Subjective Subjective: Hospitalist Progress Note (Patient was seen and examined at 11 AM 08/04/16 [id number]) Patient is very upset at the time of my exam. He states that the nurses and doctors involved in his care have treated him differently since he revealed that used Crystal Meth. He states that no one would help him get out of bed to go to the bathroom yesterday and therefore had bowel movement in bed. He states that his symptoms are not due to withdrawl from Crystal Meth and that myself and other doctors involved in his care should be ashamed to think so. Prior to my exam, patient called his on his phone and asked that I speak with her. She stated that she was a physician and that she has never heard of withdrawl symptoms from Crystal Meth and that she has never heard of someone being diagnosed with DM based upon blood glucose being over 200 (please note that the patient's HgBA1C is 8.5). She states that no one has told her what is going on with her . I went over labs and report of studies that were available up to the time of my exam with the over the phone. She stated that she was upset with the way that her has been treated by the physicians and staff here and that she had her own patients to see. She stated that if the physicians here felt that her 's symptoms were due to withdrawl from Crystal Meth and that if we have diagnosed him with DM that she wanted him transferred to another institution. I informed her that I would provide her cell phone number to the [employer] so that she can discuss further with them. Patient stated that he was not going to stay here another night and I explained to him that he was not cleared for discharge at this point. I also explained to the patient that I was not judging him which he stated that everyone here was doing. 's cell phone number [phone] was provided to [employer] Ying and the above was briefly explained to her and she will pass along 's contact information to [employer] Jeanne. ROS Soreness in the throat that is better with Ice NO bowel movement today HEENT, Cardio, Respiratory, GI, Ext, Neuro exams are all unremarkable Patient declined EEG HSV and GUZMAN results are pending Stool Culture and O&P is pending Echo report is pending Please note that I was notified by Nurse Fátima that patient wanted to sign out AMA I met patient again in his room at 1:52 PM with Nurse Fátima and explained that the workup was not complete (cultures had not been finalized) and that he ran the risk of an undiagnosed infection if her were to leave leading to injury and . He expressed understanding and signed informed refusal to accept treatment and signed out AMA. He was instructed to make sure that he followed up with the [facility] for his newly diagnosed DM (explained to him what HgBA1C was and that it was 8.5). He request Rx for DM medication and hand written Rx for Metformin 500 mg PO 2x/day with breakfast and dinner #60 NO refills was provided. Srikanth Sanchez D.O. Objective - Vital Signs/Intake and Output Vital Signs (last 24 hours): Temp Pulse Resp BP Pulse Ox 98.4 F 89 18 130/91 H 98 08/04/16 09:00 08/04/16 10:00 08/04/16 09:00 08/04/16 09:00 08/04/16 09:00 - Medications Medications: Current Medications Acetaminophen (Tylenol 325mg Tab) 650 mg PO Q4 PRN PRN Reason: Headache Last Admin: 08/03/16 05:22 Dose: 650 mg Acetaminophen (Tylenol 325mg Tab) 650 mg PO Q4 PRN PRN Reason: Fever >100.4 F Last Admin: 08/02/16 17:13 Dose: 650 mg Atorvastatin Calcium (Lipitor) 20 mg PO DAILY [facility] Last Admin: 08/04/16 08:41 Dose: 20 mg Benzocaine/Menthol (Cepacol Sore Throat) 1 lester PO Q2 PRN PRN Reason: Sore Throat Last Admin: 08/04/16 08:35 Dose: 1 lester Benzocaine/Menthol (Cepacol Sore Throat) 1 lester PO Q3 PRN PRN Reason: Sore Throat Calcium Carbonate (Oscal) 500 mg PO BIDWM [facility] Last Admin: 08/04/16 08:41 Dose: 500 mg Clonidine HCl (Catapres) 0.1 mg PO BID [facility] Last Admin: 08/04/16 08:41 Dose: 0.1 mg Ergocalciferol (Drisdol 50,000 Intl Units Cap) 1 cap PO Q7D [facility] Last Admin: 08/03/16 09:31 Dose: 1 cap Glipizide (Glucotrol) 5 mg PO ACB [facility] Last Admin: 08/04/16 08:40 Dose: 5 mg Ceftriaxone Sodium 2 gm/ (Sodium Chloride) 100 mls @ 100 mls/hr IVPB DAILY [facility] Last Admin: 08/04/16 08:38 Dose: 100 mls/hr Vancomycin HCl 1 gm/ Sodium (Chloride) 250 mls @ 166.667 mls/hr IVPB Q12 [facility] Last Admin: 08/04/16 08:39 Dose: 166.667 mls/hr Acyclovir 800 mg/ Sodium (Chloride) 250 mls @ 125 mls/hr IV Q8 [facility] Last Admin: 08/04/16 00:54 Dose: 125 mls/hr Insulin Detemir (Levemir) 6 units SC HS [facility] Last Admin: 08/03/16 22:12 Dose: 6 units Insulin Human Lispro (Humalog) 0 units SC ACHS [facility] PRN Reason: Protocol Last Admin: 08/04/16 06:30 Dose: Not Given Lorazepam (Ativan) 1 mg IVP Q6 PRN PRN Reason: Agitation Last Admin: 08/03/16 22:22 Dose: 1 mg Nicotine (Nicoderm Cq) 1 patch TD DAILY [facility] Last Admin: 08/04/16 08:42 Dose: 1 patch Pantoprazole Sodium (Protonix Ec Tab) 40 mg PO DAILY [facility] Last Admin: 08/04/16 08:41 Dose: 40 mg Sucralfate (Carafate Oral Susp) 1 gm PO QID [facility] Last Admin: 08/04/16 08:35 Dose: 1 gm - Labs Labs: 08/03/16 04:45 08/03/16 04:45 PT 10.6 SECONDS (9.6-11.2) 08/01/16 17:00 INR 1.02 (0.92-1.08) 08/01/16 17:00 APTT 30.0 SECONDS (23.3-32.5) 08/01/16 17:00
--- NOTE | 2016-08-04 12:02 | CARD ---
APPROVED REPORT EXAM: Two-dimensional and M-mode echocardiogram with Doppler and color Doppler. Other Information Quality : GoodRhythm : NSR INDICATION CVA/TIA 2D DIMENSIONS IVSd0.82 (0.7-1.1cm)LVDd5.00 (3.9-5.9cm) PWd0.93 (0.7-1.1cm)IVSs1.29 (0.8-1.2cm) LVDs3.35 (2.5-4.0cm)FS (%) 33.0 % PWs1.51 (0.8-1.2cm)LVEF (%)60.0 (>50%) M-Mode DIMENSIONS Left Atrium (MM)3.59 (2.5-4.0cm)IVSd0.96 (0.7-1.1cm) Aortic Root3.84 (2.2-3.7cm)LVDd4.94 (4.0-5.6cm) Aortic Cusp Exc.1.96 (1.5-2.0cm)PWd1.00 (0.7-1.1cm) IVSs1.49 cmFS (%) 29 % LVDs3.52 (2.0-3.8cm)PWs1.28 cm LVEF (%)60 (>50%) Aortic Valve AoV Peak Mjtrspag858.7cm/Betty Peak GR.4mmHgLVOT Peak Zzqcdwox69.2cm/s Mitral Valve MV E Trhnotyx77.2cm/sMV DECEL [id number] A Btujspyl04.1cm/s MV IFV48phQ/A ratio0.9MVA (PHT)2.35cm2 TDI Lateral E' Peak V6.84cm/sMedial E' Peak V8.23cm/sE/Lateral E'8.5 E/Medial E'7.1 Tricuspid Valve TR Peak Grcqlzmv626ia/sTR Peak Gr.39pzSyRVKM54yuCe LEFT VENTRICLE The left ventricle is normal size. There is normal left ventricular wall thickness. The left ventricular function is normal. The left ventricular ejection fraction is 55% There is normal LV segmental wall motion. The left ventricular diastolic function is normal. No left ventricle thrombus noted on this study. There is no ventricular septal defect visualized. There is no left ventricular aneurysm. There is no mass noted in the left ventricle. RIGHT VENTRICLE The right ventricle is normal size. There is normal right ventricular wall thickness. The right ventricular systolic function is normal. ATRIA The left atrium size is normal. The right atrium size is normal. The interatrial septum is intact with no evidence for an atrial septal defect. AORTIC VALVE The aortic valve is normal in structure and function. No aortic regurgitation is present. There is no aortic valvular stenosis. There is no aortic valvular vegetation. MITRAL VALVE The mitral valve is normal in structure and function. There is no evidence of mitral valve prolapse. There is no mitral valve stenosis. There is no mitral valve regurgitation noted. TRICUSPID VALVE The tricuspid valve is normal in structure and function. There is no tricuspid valve regurgitation noted. There is no tricuspid valve prolapse or vegetation. There is no tricuspid valve stenosis. PULMONIC VALVE The pulmonary valve is normal in structure and function. There is no pulmonic valvular regurgitation. There is no pulmonic valvular stenosis. GREAT VESSELS The aortic root is normal in size. The ascending aorta is normal in size. The IVC is normal in size and collapses >50% with inspiration. PERICARDIAL EFFUSION The pericardium appears normal. There is no pleural effusion. <Conclusion> Normal Echocardiogram
[2016-08-04 12:50] VITALS: BP 120/80; PULSE 85; RESP 20; TEMP 97.6; O2SAT 97
[2016-08-04 20:45] LABS: HSV 2 DNA Not Detected (Not Detected); SPECIMEN SOURCE CSF (())
--- NOTE | 2016-08-05 01:32 | CP.PCM.PN ---
Subjective - Date & Time of Evaluation Date of Evaluation: 08/04/16 Time of Evaluation: 14:00 - Subjective Subjective: Low Vitamin D, High Hb A1C 8.9, suggesting DM. Patient declined some tests, including EEG. His HIV and RPR are negative and Lyme tests is still pending. Objective - Vital Signs/Intake and Output Vital Signs (last 24 hours): Temp Pulse Resp BP Pulse Ox 97.6 F 85 20 120/80 97 08/04/16 12:00 08/04/16 12:00 08/04/16 12:00 08/04/16 12:00 08/04/16 12:00 - Labs Labs: 08/03/16 04:45 08/03/16 04:45 PT 10.6 SECONDS (9.6-11.2) 08/01/16 17:00 INR 1.02 (0.92-1.08) 08/01/16 17:00 APTT 30.0 SECONDS (23.3-32.5) 08/01/16 17:00 Assessment and Plan (1) TIA (transient ischemic attack) Status: Suspected (2) Seizures Status: Suspected (3) Anxiety Status: Acute (4) Radiculopathy Status: Acute
--- NOTE | 2016-08-05 14:35 | PQF GENQUE ---
Dr. Caal pt was admitted with fever, suspected TIA, toxic encephalopathy, cocaine and methamphetamine use. What is the principal diagnosis for this case? This form is a permanent part of the medical record Clarification of your documentation is requested to better reflect the severity of illness and intensity of treatment of your patient. 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 Based on your medical judgment of the clinical indicators outlined above please clarify the following: [] Practitioner response [] If unable to determine, please check the box, sign and date. Present On Admission (POA) Indicator: [] Present at the time of admission [] Not present at the time of admission [] Clinically Undetermined In responding to this query, please exercise your independent professional judgment. The fact that a question is asked does not imply that any particular answer is desired or expected. Thank you for your clarification on this documentation. If you have any questions please call:[ ] * Thank you, [ ]Nati Draper cath laboratory technician ZEENAT
--- NOTE | 2016-10-05 19:44 | CP.PCM.DIS ---
Provider - Provider Date of Admission: 08/02/16 00:09 Attending physician: Johnny Caal Time Spent in preparation of Discharge (in minutes): 40 Hospital Course - Lab Results Lab Results: Micro Results 08/02/16 16:52 Cerebral Spinal Fluid CSF Culture - Final NO GROWTH AFTER 5 DAYS 08/02/16 00:34 Blood Blood Culture - Final NO GROWTH AFTER 5 DAYS 08/02/16 00:34 Blood Gram Stain - Final 08/02/16 00:34 Blood Blood Culture - Final NO GROWTH AFTER 5 DAYS 08/02/16 00:34 Blood Gram Stain - Final TEST NOT PERFORMED Most Recent Lab Values WBC 8.7 K/uL (4.8-10.8) 08/03/16 04:45 RBC 4.78 Mil/uL (4.40-5.90) 08/03/16 04:45 Hgb 13.8 g/dL (12.0-18.0) 08/03/16 04:45 Hct 40.6 % (35.0-51.0) 08/03/16 04:45 MCV 84.8 fl (80.0-94.0) 08/03/16 04:45 MCH 28.8 pg (27.0-31.0) 08/03/16 04:45 MCHC 34.0 g/dL (33.0-37.0) 08/03/16 04:45 RDW 13.9 % (11.5-14.5) 08/03/16 04:45 Plt Count 184 K/uL (130-400) 08/03/16 04:45 MPV 9.1 fl (7.2-11.7) 08/03/16 04:45 Neut % (Auto) 72.7 % (50.0-75.0) 08/03/16 04:45 Lymph % (Auto) 14.2 % (20.0-40.0) L 08/03/16 04:45 [place] % (Auto) 12.1 % (0.0-10.0) H 08/03/16 04:45 Eos % (Auto) 0.4 % (0.0-4.0) 08/03/16 04:45 Baso % (Auto) 0.6 % (0.0-2.0) 08/03/16 04:45 Neut # 6.4 K/uL (1.8-7.0) 08/03/16 04:45 Lymph # 1.2 K/uL (1.0-4.3) 08/03/16 04:45 [place] # 1.1 K/uL (0.0-0.8) H 08/03/16 04:45 Eos # 0.0 K/uL (0.0-0.7) 08/03/16 04:45 Baso # 0.1 K/uL (0.0-0.2) 08/03/16 04:45 Neutrophils % (Manual) 90 % (42-75) H 08/01/16 17:00 Lymphocytes % (Manual) 7 % (20-50) L 08/01/16 17:00 Monocytes % (Manual) 3 % (0-10) 08/01/16 17:00 Platelet Estimate Normal (NORMAL) 08/01/16 17:00 Large Platelets Present 08/01/16 17:00 Poikilocytosis (manual Slight 08/01/16 17:00 Anisocytosis (manual) Slight 08/01/16 17:00 Microcytosis (manual) Slight 08/01/16 17:00 Tear Drop Cells Slight 08/01/16 17:00 Ovalocytes Slight 08/01/16 17:00 ESR 14 mm/hr (0-15) 08/02/16 05:20 PT 10.6 SECONDS (9.6-11.2) 08/01/16 17:00 INR 1.02 (0.92-1.08) 08/01/16 17:00 APTT 30.0 SECONDS (23.3-32.5) 08/01/16 17:00 Sodium 141 mmol/l (132-148) 08/03/16 04:45 Potassium 3.8 MMOL/L (3.6-5.0) 08/03/16 04:45 Chloride 103 mmol/L (98-107) 08/03/16 04:45 Carbon Dioxide 22 mmol/L (22-30) 08/03/16 04:45 Anion Gap 19 (10-20) 08/03/16 04:45 BUN 8 mg/dl (9-20) L 08/03/16 04:45 Creatinine 0.7 mg/dL (0.8-1.5) L 08/03/16 04:45 Est GFR ( Amer) > 60 08/03/16 04:45 Est GFR (Non-Af Amer) > 60 08/03/16 04:45 POC Glucose (mg/dL) 135 mg/dL (65-110) H 08/04/16 11:33 Random Glucose 266 mg/dL (75-110) H 08/03/16 04:45 Hemoglobin A1c 8.5 % (4.2-6.5) H 08/01/16 17:25 Uric Acid 4.4 mg/Dl (3.5-8.5) 08/02/16 05:20 Calcium 8.2 mg/dL (8.4-10.2) L 08/03/16 04:45 Total Bilirubin 0.3 mg/dl (0.2-1.3) 08/03/16 04:45 AST 22 U/L (17-59) 08/03/16 04:45 ALT 34 U/L (21-72) 08/03/16 04:45 Alkaline Phosphatase 87 U/L (38-126) 08/03/16 04:45 Troponin I < 0.0120 ng/mL (0.00-0.120) 08/01/16 17:00 C-React Prot High Sens > 15.00 mg/L (1.00-3.00) H 08/02/16 05:20 Total Protein 6.5 G/DL (6.3-8.2) 08/03/16 04:45 Albumin 3.4 g/dL (3.5-5.0) L 08/03/16 04:45 Globulin 3.1 gm/dL (2.2-3.9) 08/03/16 04:45 Albumin/Globulin Ratio 1.1 (1.0-2.1) 08/03/16 04:45 Triglycerides 128 mg/DL (0-149) 08/01/16 17:00 Cholesterol 197 mg/dL (0-199) 08/01/16 17:00 LDL Cholesterol Direct 132 mg/dL (0-129) H 08/01/16 17:00 HDL Cholesterol 39 MG/DL (30-70) 08/01/16 17:00 25-OH Vitamin D Total 15.4 NG/ML (30.0-100.0) L 08/02/16 05:20 Procalcitonin 0.06 NG/ML (0.19-0.49) L 08/02/16 05:20 Thyroxine (T4) 6.25 ug/dl (5.5-11.0) 08/03/16 04:45 Total T3 0.921 nmol/L (1.49-2.60) L 08/03/16 04:45 TSH 3rd Generation 1.02 mIU/ML (0.46-4.68) 08/03/16 04:45 Urine Color Straw (YELLOW) 08/02/16 17:30 Urine Clarity Clear (Clear) 08/02/16 17:30 Urine pH 6.0 (5.0-8.0) 08/02/16 17:30 Ur Specific [place] 1.009 (1.003-1.030) 08/02/16 17:30 Urine Protein Negative mg/dL (NEGATIVE) 08/02/16 17:30 Urine Glucose (UA) >=500 mg/dL (Normal) 08/02/16 17:30 Urine Ketones Negative mg/dL (NEGATIVE) 08/02/16 17:30 Urine Blood Negative (NEGATIVE) 08/02/16 17:30 Urine Nitrate Negative (NEGATIVE) 08/02/16 17:30 Urine Bilirubin Negative (NEGATIVE) 08/02/16 17:30 Urine Urobilinogen 0.2-1.0 mg/dL (0.2-1.0) 08/02/16 17:30 Ur Leukocyte Esterase Neg Jose C/uL (Negative) 08/02/16 17:30 Urine Microscopic WBC < 1 /hpf (0-5) 08/02/16 17:30 Ur Squamous Epith Cells < 1 /hpf (0-5) 08/02/16 17:30 Fluid Type Spinal fluid 08/02/16 16:52 CSF Volume 3 mL (0-1) H 08/02/16 16:52 CSF Appearance Clear/colorless (CLEAR) 08/02/16 16:52 CSF WBC 1.0 /mm3 (0.0-5.0) 08/02/16 16:52 CSF RBC 28.0 /mm3 (0.0-0.0) H 08/02/16 16:52 CSF Total Cell Counted 2 (0-0) H 08/02/16 16:52 CSF Neutrophils 0 % (0-0) 08/02/16 16:52 CSF Lymphocytes 2.0 % (0-0) H 08/02/16 16:52 CSF Monos/Macrophages 0 % (0-0) 08/02/16 16:52 CSF Comment Colorless 08/02/16 16:52 CSF Glucose 114 mg/dL (40-70) H* 08/02/16 16:52 CSF Total Protein 32.0 mg/dL (12-60) 08/02/16 16:52 CSF VDRL Nonreactive (Nonreactive) 08/02/16 16:52 Urine Opiates Screen Negative (NEGATIVE) 08/02/16 13:14 Urine Methadone Screen Negative (NEGATIVE) 08/02/16 13:14 Ur Barbiturates Screen Negative (NEGATIVE) 08/02/16 13:14 Ur Phencyclidine Scrn Negative (NEGATIVE) 08/02/16 13:14 Ur Amphetamines Screen Positive (NEGATIVE) H 08/02/16 13:14 U Benzodiazepines Scrn Negative (NEGATIVE) 08/02/16 13:14 U Oth Cocaine Metabols Negative (NEGATIVE) 08/02/16 13:14 U Cannabinoids Screen Negative (NEGATIVE) 08/02/16 13:14 Rheum Arthritis Panel Negative (NEGATIVE) 08/02/16 05:20 GUZMAN Screen Negative (Negative) 08/02/16 05:20 RPR Nonreactive (NONREACTIVE) 08/02/16 07:42 Lyme Disease Screen <0.90 index (()) 08/02/16 07:58 Lyme IgG 18 kDa Band TEST NOT PERFORMED 08/02/16 07:58 Lyme IgG 23 kDa Band TEST NOT PERFORMED 08/02/16 07:58 Lyme IgG 28 kDa Band TEST NOT PERFORMED 08/02/16 07:58 Lyme IgG 30 kDa Band TEST NOT PERFORMED 08/02/16 07:58 Lyme IgG 39 kDa Band TEST NOT PERFORMED 08/02/16 07:58 Lyme IgG 41 kDa Band TEST NOT PERFORMED 08/02/16 07:58 Lyme IgG 45 kDa Band TEST NOT PERFORMED 08/02/16 07:58 Lyme IgG 58 kDa Band TEST NOT PERFORMED 08/02/16 07:58 Lyme IgG 66 kDa Band TEST NOT PERFORMED 08/02/16 07:58 Lyme IgG 93 kDa Band TEST NOT PERFORMED 08/02/16 07:58 Lyme IgG W Blot Interp TEST NOT PERFORMED 08/02/16 07:58 Lyme IgM 23 kDa Band TEST NOT PERFORMED 08/02/16 07:58 Lyme IgM 39 kDa Band TEST NOT PERFORMED 08/02/16 07:58 Lyme IgM 41 kDa Band TEST NOT PERFORMED 08/02/16 07:58 Lyme IgM W Blot Interp TEST NOT PERFORMED 08/02/16 07:58 HSV Source Description Csf (()) 08/02/16 16:52 HSV I DNA PCR Not detected (Not Detected) 08/02/16 16:52 HSV II DNA PCR Not detected (Not Detected) 08/02/16 16:52 HIV-1 Ab Rapid Screen Non reactive (NON REAC) 08/02/16 07:58 Influenza Typ A,B (EIA) Negative for flu a/b (NEGATIVE) 08/01/16 17:30 H.influenzae Type B Ag Negative (NEGATIVE) 08/02/16 16:22 N.meningitidis ACY/W135 Negative (NEGATIVE) 08/02/16 16:22 N.meningi B/E.coli K1 Ag Negative (NEGATIVE) 08/02/16 16:22 Group B Strep Antigen Negative (NEGATIVE) 08/02/16 16:22 S. pneumoniae Antigen Negative (NEGATIVE) 08/02/16 16:22 Blood Type O POSITIVE 08/01/16 17:25 Blood Type Confirm O POSITIVE 08/01/16 19:00 Antibody Screen Negative 08/01/16 17:25 BBK History Checked No verified bt 08/01/16 17:25 - Hospital Course Hospital Course: Please note that this patient was NOT discharged as he signed out AMA. This is Dr. Srikanth Sanchez D.O. creating a Discharge Summary Document under Dr. Altagracia Caal with his permission as I could not create a document under my ID. Below is my note at the time the patient signed out AMA and this will serve as a Discharge Summary: Hospitalist Progress Note (Patient was seen and examined at 11 AM 08/04/16 [id number]) Patient is very upset at the time of my exam. He states that the nurses and doctors involved in his care have treated him differently since he revealed that used Crystal Meth. He states that no one would help him get out of bed to go to the bathroom yesterday and therefore had bowel movement in bed. He states that his symptoms are not due to withdrawl from Crystal Meth and that myself and other doctors involved in his care should be ashamed to think so. Prior to my exam, patient called his on his phone and asked that I speak with her. She stated that she was a physician and that she has never heard of withdrawl symptoms from Crystal Meth and that she has never heard of someone being diagnosed with DM based upon blood glucose being over 200 (please note that the patient's HgBA1C is 8.5). She states that no one has told her what is going on with her . I went over labs and report of studies that were available up to the time of my exam with the over the phone. She stated that she was upset with the way that her has been treated by the physicians and staff here and that she had her own patients to see. She stated that if the physicians here felt that her 's symptoms were due to withdrawl from Crystal Meth and that if we have diagnosed him with DM that she wanted him transferred to another institution. I informed her that I would provide her cell phone number to the Mechanic Chief so that she can discuss further with them. Patient stated that he was not going to stay here another night and I explained to him that he was not cleared for discharge at this point. I also explained to the patient that I was not judging him which he stated that everyone here was doing. 's cell phone number [phone] was provided to Mechanic Chief Ying and the above was briefly explained to her and she will pass along 's contact information to Mechanic Chief Jeanne. ROS Soreness in the throat that is better with Ice NO bowel movement today HEENT, Cardio, Respiratory, GI, Ext, Neuro exams are all unremarkable Patient declined EEG HSV and GUZMAN results are pending Stool Culture and O&P is pending Echo report is pending Please note that I was notified by Nurse Shine that patient wanted to sign out AMA I met patient again in his room at 1:52 PM with Nurse Shine and explained that the workup was not complete (cultures had not been finalized) and that he ran the risk of an undiagnosed infection if her were to leave leading to injury and . He expressed understanding and signed informed refusal to accept treatment and signed out AMA. He was instructed to make sure that he followed up with the [facility] for his newly diagnosed DM (explained to him what HgBA1C was and that it was 8.5). He request Rx for DM medication and hand written Rx for Metformin 500 mg PO 2x/day with breakfast and dinner #60 NO refills was provided. Srikanth Sanchez D.O. Discharge Exam - Head Exam Head Exam: NORMAL INSPECTION, NORMOCEPHALIC Discharge Plan - Follow Up Plan Condition: GOOD Disposition: HOME/ ROUTINE
== END 2016-08-04 14:10 | disposition home or self-care (01) | DRG 582 ==
LOC: H.ER 16:41 → H.ERHOLD 19:31 → H.TEL 21:36 → OBSVTOIN 08-02 00:09 → H.TEL 08-02 10:19
PROVIDERS: ADMIT Internal Medicine; ATTEND Internal Medicine
PROC: 009U3ZX Drainage of Spinal Canal, Percutaneous Approach, Diagnostic (ICD-10-PCS; principal; 2016-08-02)
DX: T43.621A Poisoning by amphetamines, accidental (unintentional), initial encounter (principal); G92 Toxic encephalopathy; E11.65 Type 2 diabetes mellitus with hyperglycemia; F14.90 Cocaine use, unspecified, uncomplicated; F15.90 Other stimulant use, unspecified, uncomplicated; I10 Essential (primary) hypertension; F41.9 Anxiety disorder, unspecified; M54.10 Radiculopathy, site unspecified